=== PATIENT | male | born 1995 | race African-American/Black ===

== ENCOUNTER 2019-04-11 12:31 | Emergency (ER) | payer MEDICAID, OTHER ==
[~2019-04-11] VITALS: Ht 180.3 cm; Wt 68.0 kg
[~2019-04-11 12:31] MED LIST: AMOXICILLIN500 MG ORAL; CIPRODEX OTIC7.5 M1 LEFT EAR; NKM
[2019-04-11 12:50] VITALS: BP 123/69
--- NOTE | 2019-04-11 13:00 | Emergency Room Report ---
History of Present Illness General Chief Complaint: Sore Throat Present Illness HPI 23-year-old male with no significant past medical history here complaining of 2 days, 10 sore throat with headache. Denies fever and chills, cough and congestion, chest pain, shortness of breath, palpitation, abdominal pain, nausea vomiting. Denies meningismus, and photophobia. Has not taken medication for symptom relief. Denies recent travel or sick contact. Allergies: Coded Allergies: No Known Allergies (Unverified , 11/11/12) Patient History Past Medical History: see triage record Past Surgical History: unable to obtain Pertinent Family History: none Immunizations: UTD Reviewed Nursing Documentation: PMH: Agreed; PSxH: Agreed Nursing Documentation-PMH Hx Asthma: Yes Review of Systems All Other Systems: negative except mentioned in HPI Physical Exam Vital Signs Date Time Temp Pulse Resp B/P (MAP) Pulse Ox O2 Delivery O2 Flow Rate FiO2 04/11/19 12:39 98.6 86 16 123/69 (87) 96 Room Air Sp02 EP Interpretation: reviewed, normal General Appearance: no apparent distress, alert, GCS 15, non-toxic Head: normocephalic, atraumatic Eyes: bilateral eye normal inspection, bilateral eye PERRL ENT: hearing grossly normal, no angioedema, normal voice, TMs + canals normal, tonsillar swelling, tonsillar exudate Neck: supple, thyroid normal, no meningismus, no bony tend Respiratory: chest non-tender, lungs clear, normal breath sounds, no rhonchi, no respiratory distress, no retraction, no wheezing, speaking full sentences Cardiovascular #1: regular rate, rhythm, no edema, no murmur, normal capillary refill Gastrointestinal: non tender, soft, no mass Genitourinary: no CVA tenderness Musculoskeletal: back normal, decreased range of motion Neurologic: alert, motor strength/tone normal, oriented x3, sensory intact, responsive, speech normal Psychiatric: judgement/insight normal, memory normal, mood/affect normal, no suicidal/homicidal ideation Skin: no rash Lymphatic: no adenopathy Medical Decision Making PA Attestation All my diagnosis and treatment plans were reviewed ad discussed with my supervising physician Dr. Merlos Diagnostic Impression: Primary Impression: Strep pharyngitis ER Course 23-year-old male with no significant past medical history here complaining of 2 days, 10 sore throat with headache. Denies fever and chills, cough and congestion, chest pain, shortness of breath, palpitation, abdominal pain, nausea vomiting. Denies meningismus, and photophobia. Has not taken medication for symptom relief. Denies recent travel or sick contact. Ddx considered but are not limited to: strep pharyngitis, URI, tonsillitis, peritonsillar abscess, influneza Vital signs: are WNL, pt. is afebrile H&PE are most consistent with: Strep pharyngitis ORDERS: Azithromycin ED INTERVENTIONS: None required at this time. DISCHARGE: At this time pt. is stable for d/c to home. Will provide printed patient care instructions, and any necessary prescriptions. Care plan and follow up instructions have been discussed with the patient prior to discharge. Take medication as directed, follow-up with your primary care physician, if worsening symptoms return to the emergency room Last Vital Signs Date Time Temp Pulse Resp B/P (MAP) Pulse Ox O2 Delivery O2 Flow Rate FiO2 04/11/19 12:39 98.6 86 16 123/69 (87) 96 Room Air Disposition: HOME, SELF-CARE Condition: Stable Scripts Azithromycin* (ZITHROMAX*) 250 Mg Tablet 250 MG ORAL DAILY, #6 TAB 0 Refills Take two tables once daily for 1 day, then one tablet once daily for 4 days. Prov: Ed Moraes 04/11/19 Referrals: [facility]ERR[facility] (PCP) Patient Instructions: Strep Throat Additional Instructions: Take medication as directed, follow-up with your primary care physician, if worsening symptoms return to the emergency Ed Moraes Apr 11, 2019 13:00
[2019-04-11] MEDS ORDERED: ZITHROMAX250 MG ORAL (13:01)
[2019-04-11 13:10] VITALS: BP 130/86
== END 2019-04-11 13:11 | disposition home or self-care (01) ==
LOC: EDBD 12:31 → EMR 12:58
DX: J02.0 Streptococcal pharyngitis (principal)
CPT/HCPCS: 99282

== ENCOUNTER 2019-05-03 13:15 | Emergency (ER) | payer OTHER ==
[~2019-05-03] VITALS: Ht 180.3 cm; Wt 68.0 kg
[~2019-05-03 13:15] MED LIST changes: +ZITHROMAX250 MG ORAL
--- NOTE | 2019-05-03 13:40 | Emergency Room Report ---
History of Present Illness General Chief Complaint: Earache Source: Patient Present Illness HPI 23-year-old male with no symptom past medical history complaining of 2 days of pain and swelling right ear as well as lymphedema on the right posterior auricular. Patient denies any fever and chills, sore throat, cough and congestion. Denies any recent water exposure and use of Q-tips. Effusion is noted in the right ear. Patient denies any hearing loss, tinnitus, vertigo, dizziness, nausea vomiting. Has not taken medication for symptom relief. Rating the pain 7 out of 10 at this time without radiation. Allergies: Coded Allergies: No Known Allergies (Unverified , 11/11/12) Patient History Past Medical History: see triage record Past Surgical History: unable to obtain Pertinent Family History: none Immunizations: UTD Reviewed Nursing Documentation: PMH: Agreed; PSxH: Agreed Nursing Documentation-PMH Past Medical History: No History, Except For Hx Asthma: Yes Review of Systems All Other Systems: negative except mentioned in HPI Physical Exam Vital Signs Date Time Temp Pulse Resp B/P (MAP) Pulse Ox O2 Delivery O2 Flow Rate FiO2 05/03/19 13:26 98.6 95 20 121/72 (88) 97 Room Air Sp02 EP Interpretation: reviewed, normal General Appearance: no apparent distress, alert, GCS 15, non-toxic Head: normocephalic, atraumatic Eyes: bilateral eye normal inspection, bilateral eye PERRL ENT: hearing grossly normal, normal pharynx, no angioedema, normal voice, other - Right TM bulging with Neck: full range of motion, supple, thyroid normal, no meningismus, no bony tend, no carotid bruits, other - Right posterior auricular swelling Respiratory: chest non-tender, lungs clear, normal breath sounds, no rhonchi, no wheezing Cardiovascular #1: regular rate, rhythm, no edema, no murmur Gastrointestinal: non tender, soft Genitourinary: no CVA tenderness Musculoskeletal: back normal Neurologic: alert, motor strength/tone normal Psychiatric: judgement/insight normal, memory normal, mood/affect normal, no suicidal/homicidal ideation Skin: no rash Lymphatic: adenopathy - Right posterior auricular Medical Decision Making PA Attestation All my diagnosis and treatment plans were reviewed ad discussed with my supervising physician Dr. Torres Diagnostic Impression: Primary Impression: Right otitis media with effusion Additional Impression: Posterior auricular lymphadenopathy ER Course 23-year-old male with no symptom past medical history complaining of 2 days of pain and swelling right ear as well as lymphedema on the right posterior auricular. Patient denies any fever and chills, sore throat, cough and congestion. Denies any recent water exposure and use of Q-tips. Effusion is noted in the right ear. Patient denies any hearing loss, tinnitus, vertigo, dizziness, nausea vomiting. Has not taken medication for symptom relief. Rating the pain 7 out of 10 at this time without radiation. Ddx considered but are not limited to: Otitis media with effusion, otitis media without effusion, otitis externa, strep pharyngitis, mastoiditis, cervical mass Vital signs: are WNL, pt. is afebrile H&PE are most consistent with: Posterior auricular lymphadenopathy, right otitis media with effusion ORDERS: Augmentin, Motrin ED INTERVENTIONS: None required at this time. DISCHARGE: At this time pt. is stable for d/c to home. Will provide printed patient care instructions, and any necessary prescriptions. Care plan and follow up instructions have been discussed with the patient prior to discharge. Patient to follow-up with primary care provider, possible referral to ENT and soft tissue CT scan of the neck may be needed if symptoms continue. Patient return to the emergency room for worsening symptoms Last Vital Signs Date Time Temp Pulse Resp B/P (MAP) Pulse Ox O2 Delivery O2 Flow Rate FiO2 05/03/19 13:26 98.6 95 20 121/72 (88) 97 Room Air Disposition: HOME, SELF-CARE Condition: Stable Scripts Ibuprofen* (MOTRIN*) 600 Mg Tablet 600 MG ORAL Q6H PRN for For Pain, #30 TAB Prov: Ed Moraes 05/03/19 Amoxicillin/Potassium Clav 875-125* (AUGMENTIN 875-125 TABLET*) 1 Each Tablet 1 TAB ORAL TWICE A DAY for 10 Days, #20 TAB Prov: Ed Moraes 05/03/19 Patient Instructions: Otitis Media, Adult, [id number] Additional Instructions: Take medication as directed, follow-up with your primary care provider, referral to ENT may be needed if symptoms continue to be bothersome to be requested by your primary care physician. If worsening symptoms return to the emergency room Ed Moraes May 03, 2019 13:40
[2019-05-03] MEDS ORDERED: AUGMENTIN 875-1 EAC1 ORAL (13:41)
[2019-05-03] MEDS ORDERED: IBUPROFEN600 MG ORAL (13:41)
[2019-05-03 14:07] VITALS: BP 120/67
== END 2019-05-03 14:07 | disposition home or self-care (01) ==
LOC: EMR 14:02
DX: H65.91 Unspecified nonsuppurative otitis media, right ear (principal); R59.1 Generalized enlarged lymph nodes
CPT/HCPCS: 99282